=== PATIENT | female | born 2005 | race Caucasian/White ===

== ENCOUNTER → 2023-03-11 14:33 | Outpatient (CLI) | payer BC, SELFPAY ==
[2023-03-11 18:47] LABS: Urine N gonorrhoeae NOT DETECTED
[2023-03-11 18:52] LABS: Urine Chlamydia NOT DETECTED
== END ==
PROVIDERS: PCP Family Medicine; Visit Provider Family Medicine
DX: Z11.3 Encounter for screening for infections with a predominantly sexual mode of transmission (principal)
CPT/HCPCS: 87491; 87591

== ENCOUNTER 2023-07-27 15:01 | Emergency (ER) | payer BC, SELFPAY ==
[2023-07-27 15:04] VITALS: BP 115/82; PULSE 72; RESP 24; TEMP 37.4; O2SAT 98; BMI 22.4
--- NOTE | 2023-07-27 15:24 | PC.NURSE ---
provider at bedside for primary eval
[2023-07-27] MEDS: hydrOXYzine pamoate 25 MG CAPSULE PO (16:25)
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
== END 2023-07-27 17:51 | disposition home or self-care (01) ==
PROVIDERS: Emergency Provider Student in an Organized Health Care Education/Training Program; PCP Family Medicine
DX: F41.9 Anxiety disorder, unspecified (principal)
CPT/HCPCS: 81025; 99283

== ENCOUNTER 2023-08-06 02:06 | Emergency (ER) | payer BC, SELFPAY ==
[2023-08-06 02:14] VITALS: BP 115/58; PULSE 83; RESP 22; TEMP 36.8; O2SAT 97; BMI 22.8
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
[2023-08-06] MEDS: diazePAM 5 MG TABLET PO (02:57)
[2023-08-06 03:03] VITALS: BP 112/63; PULSE 74; RESP 16; TEMP 36.8; O2SAT 99
== END 2023-08-06 03:04 | disposition home or self-care (01) ==
PROVIDERS: Emergency Provider Family Medicine Addiction Medicine; PCP Family Medicine
DX: F41.9 Anxiety disorder, unspecified (principal)
CPT/HCPCS: 99283

== ENCOUNTER → 2023-10-10 14:40 | Outpatient (CLI) | payer BC, SELFPAY ==
[2023-10-10 15:31] LABS: Pregnancy Test Urine Negative (Negative)
== END ==
PROVIDERS: PCP Family Medicine; Referring Provider Family Medicine; Visit Provider Family Medicine
DX: N93.9 Abnormal uterine and vaginal bleeding, unspecified (principal); F32.9 Major depressive disorder, single episode, unspecified; N94.6 Dysmenorrhea, unspecified; F41.9 Anxiety disorder, unspecified; F90.9 Attention-deficit hyperactivity disorder, unspecified type
CPT/HCPCS: 81025

== ENCOUNTER → 2023-12-25 06:44 | Outpatient (CLI) | payer BC, SELFPAY ==
--- NOTE | 2023-12-25 06:44 | DI.US.S_ITS ---
PROCEDURE: US PELVIC COMPLETE INDICATIONS: DYSMENORRHEA TECHNIQUE: Real-time scanning was performed of the pelvic organs, with image documentation. Additional endovaginal scanning was necessary due to incomplete visualization of the adnexal and endometrial structures by transabdominal scanning. COMPARISON: None. FINDINGS: Uterus: Uterus is anteverted and normal in size at 7.5 x 4.1 x 3.3 cm. The myometrium is homogeneous. The endometrium measures 5 mm combined thickness. No fibroids seen. Ovaries: The right ovary measures 3.6 x 3.5 x 2 cm, with a calculated ovarian volume of 13 cc. The left ovary measures 3.8 x 2.9 x 2.2 cm, with a calculated ovarian volume of 13 cc. The ovaries have a normal sonographic appearance. Less than 12 follicles can be seen in each ovary. No adnexal masses are seen. Dominant right ovarian follicle measuring 1.4 cm. Other: No pathologic free abdominal or pelvic fluid. IMPRESSION: 1. Endometrium measures 5 mm. 2. No fibroids seen. No significant ovarian cysts. We strive to produce accurate, complete, and clear reports of imaging services. To assist us in improving patient care, this report was composed using standard report templates and voice recognition software. Therefore, it may contain abnormal punctuation, insertions and/or omissions. Occasional wrong-word or sound-alike substitutions may occur. Though we review the report and make efforts to correct it, we do recommend that the report be read carefully in proper context to recognize any text inaccuracies. Dictated by: Korey Gregg M.D. on 12/25/2023 at 10:24 Approved by: Korey Gregg M.D. on 12/25/2023 at 10:27
== END ==
PROVIDERS: PCP Family Medicine; Referring Provider Family Medicine; Visit Provider Family Medicine
DX: N93.9 Abnormal uterine and vaginal bleeding, unspecified (principal); N92.6 Irregular menstruation, unspecified
CPT/HCPCS: 76830; 76856; 93975

== ENCOUNTER 2024-02-26 14:35 | Emergency (ER) | payer BC, SELFPAY ==
[2024-02-26 14:37] VITALS: BP 127/89; PULSE 90; RESP 18; TEMP 37.2; O2SAT 100; BMI 21.9
--- NOTE | 2024-02-26 15:08 | CM.SWNOTE ---
ED PAPER GRADER Note PAPER GRADER receives consult due to concern for patient's anxiety and panic attack today. It is reported that patient presents today due to concern for seizure from panic attack, and patient is out of refill for Hydroxyzine. Patient denies SI or thoughts of self harm. PAPER GRADER enters room to meet with patient, patient is 18 y/o female who states she has a panic disorder and her boyfriend is out of town so she is out of her routine. Patient states that her boyfriend will return home on 03/09. Patient states she has a therapist in [place] where she used to live previously. Patient states that she has weekly telehealth appts, but she cancelled today's appt. Patient states that she can reschedule for Friday but her next scheduled appt is Friday next week. Patient states that her brother and mother live on [facility] and they plan to visit patient today, patient states her friend from [place] will also be coming over soon to stay with patient. Patient states she is aware of crisis numbers and has access to them and declines list provided by PAPER GRADER. PAPER GRADER offers to schedule PCP f/u appt for patient, patient agrees. Patient's PCP is Dr. Whitney and patient was last seen in September 2023. PAPER GRADER calls PCP office and schedules ED f/u for patient, appt is tomorrow 02/27/24 at 11:15 am check in. PAPER GRADER reviews this with patient who indicates agreement and understanding. Patient declines any further needs from PAPER GRADER and states that hydroxyzine has been helpful in the past and she would like be evaluated by ED provider and receive refill if possible. PAPER GRADER reviews this with ED provider Dr. Burr who indicates agreement and understanding. Plan: Patient to d/c to home upon medical clearance after ED evaluation, likely with refill for Hydroxyzine. Patient to f/u with PCP appt tomorrow, patient to f/u with therapist next week and seek support from friends and family. NAILA Rose
--- NOTE | 2024-02-26 16:23 | ED_ITS ---
HPI - Anxiety General Chief Complaint: Anxiety Stated Complaint: panic attack Time Seen by Provider: 02/26/24 16:23 Source: patient Mode of arrival: Ambulatory History of Present Illness HPI narrative: Patient 18-year-old female history of panic attack currently out of her hydroxyzine states that she has had type for the last 4 hours. She reports that her is out of town and stay out of service working. She sometimes gets triggered when she is home alone. Now after being an emergency she is feeling a lot better. She feels like she just needs a prescription oxygen. She denies any suicidal plans or homicidal ideations. She says sometimes she has an occasional thought of not waking up but she has no updated on the not actively having this thought. Related Data Previous Rx's Medication Instructions Recorded levonorgestrel-ethinyl estradiol 1 tab PO DAILY #84 tabs 09/17/23 0.1 mg-20 mcg tablet (Aviane) hydroxyzine HCl 25 mg tablet See Rx Instructions PO BID PRN 11/28/23 anxiety #60 tabs hydroxyzine HCl 25 mg tablet 25 mg PO TID PRN anxiety #30 tabs 02/26/24 Allergies Allergy/AdvReac Type Severity Reaction Status Date / Time trazodone Allergy Severe Anaphylaxis Verified 02/26/24 14:40 benzonatate AdvReac Unknown Verified 02/26/24 14:40 Patient History Medical History (Updated 02/26/24 @ 16:29 by Lianne Burr DO) Abnormal uterine bleeding (AUB) MDD (major depressive disorder) Insomnia Binge-eating and purging type anorexia nervosa ADHD Social History Smoking Status: Current every day smoker Smoking Status: Current every day smoker alcohol intake frequency: holidays/special occasions only Substance Use Type: marijuana Exam Initial Vital Signs Initial Vital Signs: Vital Signs Temperature 99.0 F 02/26/24 14:37 Pulse Rate 90 02/26/24 14:37 Respiratory Rate 18 02/26/24 14:37 Blood Pressure 127/89 02/26/24 14:37 Pulse Oximetry 100 02/26/24 14:37 Oxygen Delivery Method Room Air 02/26/24 14:37 GENERAL: Alert well-appearing 18-year-old female CARDIOVASCULAR: peripheral pulses in tact, cap refill <2 sec RESPIRATORY: No respiratory distress, speaks in full sentences without difficulty ABDOMEN: Soft, nontender, no guarding or rebound EXTREMITIES: Normal range of motion, no clubbing or edema. Neurovascularly intact NEUROLOGICAL: Cranial nerves II through XII grossly intact. Normal gait and speech. SKIN: Warm, dry, no petechiae, no rashes or lesions. Course Orders Ordered: ED Orders 02/26/24 14:47 Consult to CONSOLE ATTENDANT - [employer] Stat Vital Signs Vital signs: Vital Signs - 8 hr 02/26/24 14:37 Temperature 99.0 F Pulse Rate 90 Respiratory Rate 18 Blood Pressure 127/89 Pulse Oximetry 100 Oxygen Delivery Method Room Air MDM - Anxiety MDM Narrative Medical decision making narrative: Patient 18-year-old female history of anxiety presents today with anxiety. She has been out of her hydroxyzine. She has no suicidal ideations. She has been evaluated by social work. At this time we will refill her hydroxyzine no need for any sort of further workup. Discharge Plan Departure Patient Disposition: Home Clinical Impression: Anxiety Instructions: DI for Anxiety -- Adult Activity Restrictions/Additional Instructions: *You have been diagnosed with anxiety *What to do: At this time you do have some anxiety. You are welcome to come to the ED if you feel like it is out of control or you have worsening suicidal thoughts *Continue to take medications as directed Hydroxyzine 25 mg every 8 hours needed for anxiety *Follow up with your primary care provider in 2-3 days or call [phone] *Return to ER if you should have any new, worsening or concerning symptoms Prescriptions: New hydroxyzine HCl 25 mg tablet 25 mg PO TID PRN (Reason: anxiety) Qty: 30 0RF No Action hydroxyzine HCl 25 mg tablet See Rx Instructions PO BID PRN (Reason: anxiety) Qty: 60 0RF Rx Instructions: Take one or two tablets twice daily as needed for anxiety levonorgestrel-ethinyl estrad [Aviane] 0.1-20 mg-mcg tablet 1 tab PO DAILY Qty: 84 3RF Referrals: Faustina Whitney MD [Primary Care Provider] - Stand Alone Forms: Patient Portal/API
[2024-02-26 16:38] VITALS: BP 122/69; PULSE 87; RESP 18; TEMP 36.7; O2SAT 99
== END 2024-02-26 16:39 | disposition home or self-care (01) ==
PROVIDERS: Emergency Provider Emergency Medicine; PCP Family Medicine
DX: F41.9 Anxiety disorder, unspecified (principal)
CPT/HCPCS: 99281; 99283

== ENCOUNTER 2024-08-03 05:59 | Emergency (ER) | payer BC, SELFPAY ==
[2024-08-03 06:08] VITALS: BP 147/68; PULSE 97; RESP 17; TEMP 36.6; O2SAT 100; BMI 24.3
--- NOTE | 2024-08-03 06:19 | ED_ITS ---
HPI - Psych <DO Renee Archer Last Filed: 08/05/24 07:09> General Chief Complaint: Psychiatric Symptoms Stated Complaint: feeling manic and history of seizures Time Seen by Provider: 08/03/24 06:01 Source: patient Mode of arrival: Ambulatory History of Present Illness HPI Narrative: Patient is a 18-year-old female. States she was a history of anxiety. She also states that she gets ?stress seizures?. He has been on hydroxyzine in the past and that seems to have helped her symptoms. She does not have a prescription for but did not feel that she was neither recently. She did have a panic attack a couple days ago. She states that last evening she started to have a anxiety/manic episode. She was not slept overnight. She was not tried anything for her symptoms. Not suicidal. Not homicidal. She was concerned that the symptoms that he was experiencing would lead to 1 of her ?stress seizures? Related Data Previous Rx's Medication Instructions Recorded hydroxyzine HCl 25 mg tablet 25 mg PO TID PRN anxiety #45 tabs 02/27/24 sertraline 25 mg tablet 25 mg PO DAILY #30 tabs 02/27/24 hydroxyzine HCl 25 mg tablet 25 mg PO QID PRN anxiety #30 tabs 08/03/24 Allergies Allergy/AdvReac Type Severity Reaction Status Date / Time trazodone Allergy Severe Anaphylaxis Verified 03/26/24 10:29 benzonatate AdvReac Unknown Verified 03/26/24 10:29 Review of Systems <DO Renee Archer Last Filed: 08/05/24 07:09> Review of Systems ROS Unobtainable: All systems reviewed & are unremarkable except as noted in HPI and below Patient History <DO Renee Archer Last Filed: 08/05/24 07:09> Medical History Abnormal uterine bleeding (AUB) MDD (major depressive disorder) Insomnia Binge-eating and purging type anorexia nervosa ADHD Social History Smoking Status: Current every day smoker Smoking Status: Current every day smoker alcohol intake frequency: holidays/special occasions only Exam <DO Renee Archer Last Filed: 08/05/24 07:09> Initial Vital Signs Initial Vital Signs: Vital Signs Temperature 97.9 F 08/03/24 06:08 Pulse Rate 97 H 08/03/24 06:08 Respiratory Rate 17 08/03/24 06:08 Blood Pressure 147/68 H 08/03/24 06:08 Pulse Oximetry 100 08/03/24 06:08 Oxygen Delivery Method Room Air 08/03/24 06:08 Const General: cooperative, comfortable and No ill appearing HENMT Head: normal to inspection and normocephalic Resp Effort & Inspection: normal respiratory effort Cardio Rate: regular rate Skin General: no rashes or lesions noted Neuro General: patient alert, patient awake, patient oriented x3 and moves all extremities Extrem General: normal to inspection <Broderick Baker MD - Last Filed: 08/03/24 08:13> Initial Vital Signs Initial Vital Signs: Vital Signs Temperature 97.9 F 08/03/24 06:08 Pulse Rate 97 H 08/03/24 06:08 Respiratory Rate 17 08/03/24 06:08 Blood Pressure 147/68 H 08/03/24 06:08 Pulse Oximetry 100 08/03/24 06:08 Oxygen Delivery Method Room Air 08/03/24 06:08 Course <Thien Hairston DO - Last Filed: 08/05/24 07:09> Orders Ordered: Discontinued Medications Hydroxyzine HCl (Hydroxyzine Hcl 25 Mg Tablet) 25 mg PO NOW ONE Stop: 08/03/24 06:16 Last Admin: 08/03/24 06:24 Dose: 25 mg Documented By: TREVOR Vital Signs Vital signs: Vital Signs - 8 hr 08/03/24 06:08 Temperature 97.9 F Pulse Rate 97 H Respiratory Rate 17 Blood Pressure 147/68 H Pulse Oximetry 100 Oxygen Delivery Method Room Air <Broderick Baker MD - Last Filed: 08/03/24 08:13> Orders Ordered: Discontinued Medications Hydroxyzine HCl (Hydroxyzine Hcl 25 Mg Tablet) 25 mg PO NOW ONE Stop: 08/03/24 06:16 Last Admin: 08/03/24 06:24 Dose: 25 mg Documented By: TREVOR Vital Signs Vital signs: Vital Signs - 8 hr 08/03/24 06:08 Temperature 97.9 F Pulse Rate 97 H Respiratory Rate 17 Blood Pressure 147/68 H Pulse Oximetry 100 Oxygen Delivery Method Room Air MDM - Psych <DO Reene Archer Last Filed: 08/05/24 07:09> [facility] Narrative Medical decision making narrative: Patient states that hydroxyzine has worked for her in the past and sometimes Valium. She was calm in the room. Will try hydroxyzine and re-evaluate. Care turned over to Dr. Baker to follow-up and disposition. <Broderick Baker MD - Last Filed: 08/03/24 08:13> [facility] Narrative Medical decision making narrative: Patient states that hydroxyzine has worked for her in the past and sometimes Valium. She was calm in the room. Will try hydroxyzine and re-evaluate. Care turned over to Dr. Baker to follow-up and disposition. After history and exam no blood work indicated at this time. Patient here essentially clinically for anxiety. No social work consult, no SI no HI [facility] Medical records reviewed: No recent visit for this complaint Differential considered: Includes but not limited to anxiety depression Treatments: Hydroxyzine Re-evaluations: 7:40 a.m.. Patient feeling much better. Desires discharge home. Return precautions reviewed. She does have a family doctor to follow up with. Discussion: Appropriate for discharge home exam is reassuring. Patient feeling much better and desires discharge home. Diagnosis: Anxiety 7:00 a.m.. Samuel: ?sign out from Dr Hairston, patient here for anxiety. No blood work indicated.. No social work indicated no SI no HI. Patient has been anxious. No seizures. 7:40 a.m.. Patient feeling much better. Desires discharge home. Boyfriend at bedside. He has primary care follow up with. Prescription provided for Vistaril/hydroxyzine. Discharge Plan Departure Patient Disposition: Home Clinical Impression: Anxiety Instructions: DI for Anxiety -- Adult Activity Restrictions/Additional Instructions: I am glad you are feeling better. Prescription for hydroxyzine has been sent to your pharmacy to continue. Please see your family doctor within a week for re- evaluation. Return if worse if any questions or concerns. Prescriptions: New hydroxyzine HCl 25 mg tablet 25 mg PO QID PRN (Reason: anxiety) Qty: 30 0RF No Action hydroxyzine HCl 25 mg tablet 25 mg PO TID PRN (Reason: anxiety) Qty: 45 3RF sertraline 25 mg tablet 25 mg PO DAILY Qty: 30 2RF Referrals: Faustina Whitney MD [Primary Care Provider] - Stand Alone Forms: Patient Portal/API/Survey
[2024-08-03] MEDS: hydrOXYzine HCL 25 MG TABLET PO (06:24)
== END 2024-08-03 07:47 | disposition home or self-care (01) ==
PROVIDERS: Emergency Provider Emergency Medicine; PCP Family Medicine
DX: F41.9 Anxiety disorder, unspecified (principal)
CPT/HCPCS: 99283; A9270

== ENCOUNTER → 2024-10-06 19:17 | Outpatient (CLI) | payer BC, SELFPAY ==
--- NOTE | 2024-10-06 19:22 | DI.MRI.S_ITS ---
PROCEDURE: MR HEAD/BRAIN WO CON INDICATIONS: Seizure-like activity TECHNIQUE: Noncontrast axial T1 spin echo, axial T2 fast spin echo, sagittal and axial FLAIR, coronal T2 fast spin echo, axial gradient echo, axial diffusion and ADC through the brain. This study was initially requested as a brain MRI without and with contrast but the patient declined to receive intravenous contrast for the 2nd half of the study. COMPARISON: None. FINDINGS: Image quality: Excellent. CSF Spaces: Basal cisterns are patent. No extra-axial fluid collections. Ventricles are normal in size and shape. Brain: No intracranial masses or hemorrhage. James/white matter interface is normal. Brainstem appears normal. Diffusion-weighted images demonstrate no acute infarct. No chronic ischemic insults. Normal intravascular flow voids are present. Skull and face: Calvarium has normal marrow signal. Orbits appear normal. Sinuses: Sinuses and mastoids are clear. IMPRESSION: Normal examination. As discussed above the patient declined to proceed with the postcontrast imaging portion of this examination. Therefore the study was performed without contrast only. No apparent need for contrast-enhanced examination based on the current imaging findings. Dictated by: Virgil Collier M.D. on 10/07/2024 at 9:18 Approved by: Virgil Collier M.D. on 10/07/2024 at 9:21
== END ==
PROVIDERS: PCP Family Medicine; Referring Provider Family Medicine; Visit Provider Family Medicine
DX: R56.9 Unspecified convulsions (principal)
CPT/HCPCS: 70551